=== PATIENT | female | born 1985 | race Asian ===

== ENCOUNTER 2017-08-07 16:32 | Emergency (ER) | payer OTHER ==
[~2017-08-07] VITALS: Ht 162.6 cm; Wt 94.3 kg
[2017-08-07 16:46] VITALS: BP 145/98; TEMP 98.4
== END 2017-08-07 17:00 | disposition home or self-care (01) ==
LOC: ED 16:32
DX: R21 Rash and other nonspecific skin eruption (principal); L65.9 Nonscarring hair loss, unspecified
CPT/HCPCS: 99281